=== PATIENT | male | born 1960 | race Caucasian/White ===

== ENCOUNTER → 2018-06-21 | Outpatient (CLI) | payer OTHER ==
[~2018-06-21] MED LIST: ADVAIR 250-501 EACH INH; ALBUTEROL NEB INH; CARISOPRODOL 3350 MG PO; CYCLOBENZAPRINE10 MG PO; HYDROCODON-ACE1 EAC7 PO; KEFLEX500 MG PO; MOBIC15 MG PO; NAPROSYN500 MG PO; PERCOCET 10-321 EACH PO; POTASSIUM; PRILOSEC 10MG C10 M1 PO; PROAIR HFA8.5 GM IH; SPIRIVA INH; TRIBENZOR 40-11 EACH PO; [UNRECOGNIZED DRUG - REMARK] PO
== END | disposition home or self-care (01) ==
LOC: M.RAD 06-18 13:59
DX: M48.061 Spinal stenosis, lumbar region without neurogenic claudication (principal); M25.78 Osteophyte, vertebrae; Q76.49 Other congenital malformations of spine, not associated with scoliosis; Z79.891 Long term (current) use of opiate analgesic; Z79.899 Other long term (current) drug therapy